=== PATIENT | male | born 1975 ===

== ENCOUNTER 2018-01-04 09:36 | Outpatient (CLI) | payer OTHER ==
[~2018-01-04] VITALS: Ht 172.7 cm; Wt 76.2 kg
== END 2018-01-04 10:00 | disposition home or self-care (01) ==
LOC: OFIC 805 09:36
DX: H61.23 Impacted cerumen, bilateral (principal); H90.42 Sensorineural hearing loss, unilateral, left ear, with unrestricted hearing on the contralateral side